=== PATIENT | male | born 2000 | race Caucasian/White ===

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

== ENCOUNTER 2023-05-21 15:28 | Emergency (ER) | payer BC ==
[~2023-05-21] VITALS: Ht 182.9 cm; Wt 102.5 kg
[~2023-05-21 15:28] MED LIST changes: +SIMV-343 PO; -SIMV20TA2 PO
[2023-05-21 15:55] VITALS: BP_SYST 109; PULSE 70; RESP 18; TEMP 98.1; O2SAT 97
[2023-05-21] MEDS ORDERED: BACLOFEN 10 MG TABLET PO ONE (17:00)
[2023-05-21] MEDS ORDERED: HYDROcodone/ACETAMIN 5-325 MG TAB (NORCO/ VICODIN) PO ONE (17:00)
[2023-05-21] MEDS ORDERED: LIDOCAINE PATCH 5% 1 EA TP ONE (17:00)
[2023-05-21] MEDS ORDERED: BACL20TA PO (17:06)
[2023-05-21] MEDS ORDERED: DICL20GE TP (17:06)
[2023-05-21] MEDS ORDERED: LIDO1ADH22 TP (17:06)
[2023-05-21] MEDS ORDERED: OXYC-128 PO (17:06)
== END 2023-05-21 17:37 | disposition home or self-care (01) ==
LOC: SED 15:38
DX: S39.012A Strain of muscle, fascia and tendon of lower back, initial encounter (principal); X50.9XXA Other and unspecified overexertion or strenuous movements or postures, initial encounter; Y93.89 Activity, other specified; Y92.89 Other specified places as the place of occurrence of the external cause; Y99.8 Other external cause status
CPT/HCPCS: 99284